=== PATIENT | female | born 1980 | race Caucasian/White ===

== ENCOUNTER 2020-05-29 10:29 | Emergency (ER) | payer OTHER ==
[~2020-05-29] VITALS: Ht 152.4 cm; Wt 47.6 kg
[2020-05-29] MEDS ORDERED: PROTONIX20 MG PO (10:42)
== END 2020-05-29 12:06 | disposition home or self-care (01) ==
LOC: ER 10:29
DX: T19.2XXA Foreign body in vulva and vagina, initial encounter (principal); X58.XXXA Exposure to other specified factors, initial encounter; Y93.89 Activity, other specified; Y92.89 Other specified places as the place of occurrence of the external cause; Y99.8 Other external cause status